=== PATIENT | female | born 1935 | race Caucasian/White ===

== ENCOUNTER 2018-02-26 12:44 | Observation (INO) | payer MEDICARE, OTHER ==
[~2018-02-26] VITALS: Ht 162.6 cm; Wt 81.2 kg
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
[2018-02-26] MEDS ORDERED: MAGN100T2 PO (13:27)
[2018-02-26] MEDS ORDERED: HYDR-653 PO (13:27)
[2018-02-26] MEDS ORDERED: METO50TA19 PO (13:27)
[2018-02-26] MEDS ORDERED: SPIR25TA80 PO (13:27)
[2018-02-26] MEDS ORDERED: FURO-45 PO (14:06)
[2018-02-26] MEDS ORDERED: CLOP75TA43 PO (14:06)
[2018-02-26] MEDS ORDERED: ENOX40DI8 SQ (14:06)
[2018-02-26] MEDS ORDERED: oxyCODONE HCL 5 MG CAP PO PRN (14:45)
[2018-02-26] MEDS ORDERED: MAGNESIUM HYDROXIDE* 30ML UDCP PO PRN (14:45)
[2018-02-26] MEDS ORDERED: BISACODYL 10 MG SUPP PR PRN (14:45)
[2018-02-26 14:49] VITALS: BP 141/63
[2018-02-26] MEDS ORDERED: OXYC10TA67 PO (14:51)
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
[2018-02-26] MEDS: POLYETHYLENE GLYCOL 17 GM PKT PO SCH (15:26)
[2018-02-26] MEDS: ENOXAPARIN 40 MG/0.4ML SYR SC SCH (17:37)
[2018-02-26] MEDS ORDERED: ACETAMINOPHEN 500 MG TAB PO PRN (18:20)
[2018-02-26 18:47] VITALS: BP 103/66
[2018-02-26] MEDS ORDERED: DOCU-416 PO (19:54)
[2018-02-26] MEDS ORDERED: CHOL10005 PO (19:56)
[2018-02-26] MEDS ORDERED: MULT-19 (19:56)
[2018-02-26] MEDS: DOCUSATE SODIUM 100 MG CAP PO SCH (20:09)
[2018-02-26] MEDS: oxyCODONE HCL 5 MG CAP PO PRN (20:09)
[2018-02-27] MEDS: oxyCODONE HCL 5 MG CAP PO PRN ×6 (00:09→20:54)
[2018-02-27 00:10] VITALS: BP 141/66
[2018-02-27 07:38] VITALS: BP 114/62
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
[2018-02-27] MEDS: POLYETHYLENE GLYCOL 17 GM PKT PO SCH (08:29)
[2018-02-27] MEDS: DOCUSATE SODIUM 100 MG CAP PO SCH ×2 (08:29→20:53)
[2018-02-27] MEDS: CLOPIDOGREL BISULFATE 75MG TAB PO SCH (08:29)
[2018-02-27 08:33] VITALS: BP 128/60
[2018-02-27] MEDS: METOPROLOL SUCC XL 50 MG TABCR 50 MG TAB.ER.24H PO SCH (08:35)
--- NOTE | 2018-02-27 08:48 | NUR ---
family unwilling to provide family medical history. unable to complete this admission intervention.
--- NOTE | 2018-02-27 14:17 | NUR ---
Physical Therapy Impression PT/OT co eval complete. Pt requires modA for LEs in/out of bed with mobility. CGA for transfers with verbal cues to prevent excess hip flexion. CGA for ambulation, pt with major buckling of R) knee during gait, requiring min-modA for safety. Rec that pt d/c to SNF as previously arranged. Physical Therapy Goals 1: Pt to complete bed mobility with Trung 2: Pt to complete transfers with SBA and RW 3: Pt to ambulate 150' with SBA and RW Patient's Goals
--- NOTE | 2018-02-27 14:56 | NUR ---
Occupational Therapy Impression Pt alert and agreeable to PT/OT tx upon 2nd attempt. Reports she is unsure of what procedure was performed but does recall posterior hip precautions. SpO2 WNL on 1.5 L throughout tx. Mod A bed mobility in/out. CGA ambulation in room and into hallway with RW. Pt requiring Min A during ambulation as right knee buckled. Pt reports hx of this occurring. Declined further ADLs, needs, or concerns. Rec previous plan of further inpatient rehab. Occupational Therapy Goals Patient's Goal
[2018-02-27 15:17] VITALS: BP 105/68
[2018-02-27] MEDS: ENOXAPARIN 40 MG/0.4ML SYR SC SCH (16:58)
[2018-02-27 21:09] VITALS: BP 124/55
[2018-02-27 23:43] VITALS: BP 144/65
[2018-02-28] MEDS: oxyCODONE HCL 5 MG CAP PO PRN ×6 (01:27→23:57)
[2018-02-28 07:39] VITALS: BP 126/70
[2018-02-28] MEDS: METOPROLOL SUCC XL 50 MG TABCR 50 MG TAB.ER.24H PO SCH (09:00)
[2018-02-28] MEDS: DOCUSATE SODIUM 100 MG CAP PO SCH ×2 (09:21→20:51)
[2018-02-28] MEDS: CLOPIDOGREL BISULFATE 75MG TAB PO SCH (09:21)
[2018-02-28] MEDS: POLYETHYLENE GLYCOL 17 GM PKT PO SCH (09:22)
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
[2018-02-28 09:26] VITALS: BP 103/59
[2018-02-28 11:38] VITALS: BP 125/60
--- NOTE | 2018-02-28 12:48 | NUR ---
Physical Therapy Impression Pt requires Mod A for bed mobility, CGA to stand, and CGA to ambulate 75' with RW. Pt requires verbal cueing for hip precautions. Recommend Pt be admitted to SNF per original plan. Physical Therapy Goals 1: Pt to complete bed mobility with Trung 2: Pt to complete transfers with SBA and RW 3: Pt to ambulate 150' with SBA and RW Patient's Goals
[2018-02-28] MEDS ORDERED: INFLUENZA VIRUS VAC 0.5ML SYR IM ONLY ONE (14:45)
[2018-02-28 15:04] VITALS: BP 141/72
[2018-02-28 15:44] VITALS: Ht 162.6 cm; Wt 81.2 kg
[2018-02-28] MEDS: ENOXAPARIN 40 MG/0.4ML SYR SC SCH (16:47)
[2018-02-28 19:16] VITALS: BP 104/54
[2018-02-28 23:49] VITALS: BP 147/76
[2018-03-01 04:31] VITALS: BP 127/63
[2018-03-01] MEDS: oxyCODONE HCL 5 MG CAP PO PRN ×2 (05:24→09:32)
[2018-03-01] MEDS: METOPROLOL SUCC XL 50 MG TABCR 50 MG TAB.ER.24H PO SCH (09:00)
[2018-03-01] MEDS: POLYETHYLENE GLYCOL 17 GM PKT PO SCH (09:00)
[2018-03-01] MEDS: DOCUSATE SODIUM 100 MG CAP PO SCH (09:00)
[2018-03-01 09:26] VITALS: BP 120/57
[2018-03-01 09:30] VITALS: BP 93/73
[2018-03-01] MEDS: CLOPIDOGREL BISULFATE 75MG TAB PO SCH (09:32)
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
== END 2018-03-01 09:52 ==
LOC: ER 12:56 → MED 14:28
PROVIDERS: ADMIT Internal Medicine; ATTEND Internal Medicine
DX: S72.001D Fracture of unspecified part of neck of right femur, subsequent encounter for closed fracture with routine healing (principal); I25.10 Atherosclerotic heart disease of native coronary artery without angina pectoris; I10 Essential (primary) hypertension; R60.0 Localized edema; R53.1 Weakness
CPT/HCPCS: 96372; 97116; 97161; 97166; 97530; A9270; G0378; J1650; 99281